=== PATIENT | female | born 2000 | race Caucasian/White ===

== ENCOUNTER 2022-10-12 12:38 | Emergency (ER) | payer OTHER, SELFPAY ==
[2022-10-12 12:52] VITALS: BP 129/63; PULSE 95; RESP 16; TEMP 36.6; O2SAT 100
--- NOTE | 2022-10-12 15:50 | ECG_ITS ---
Measurements Intervals [place] Rate: 83 P: 39 NM: 119 QRS: 38 QRSD: 88 T: 17 QT: 347 QTc: 410 Interpretive Statements SINUS RHYTHM WITH SINUS ARRHYTHMIA WITH SHORT NM INTERVAL NONSPECIFIC ST & T-WAVE ABNORMALITY- ANTEROLAT/INF LEADS BASELINE ARTIFACT- I, II, III, V6 BORDERLINE ECG NO PREVIOUS ECG AVAILABLE FOR COMPARISON Electronically Signed On 10-12-2022 16:43:47 MOUTHPIECE MAKER by Zafar Borges D.O.
--- NOTE | 2022-10-12 18:57 | PC.NURSE ---
Patient states that she is leaving and wished this RN to cut off her armband. Patient ambulated out of department without assistance.
== END 2022-10-12 19:12 | disposition left against medical advice (07) ==
PROVIDERS: Emergency Provider Emergency Medicine; PCP Physician Assistant
DX: R07.9 Chest pain, unspecified (principal)
CPT/HCPCS: 93005; 99199

== ENCOUNTER 2022-11-20 07:37 | Emergency (ER) | payer OTHER, SELFPAY ==
--- NOTE | ~2022-11-20 | CT_ITS ---
EXAMINATION: CT abdomen pelvis w con DATE: 11/20/2022 08:23 INDICATION: Generalized abdominal pain and bloating. TECHNIQUE: Computed tomography (CT) of the abdomen and pelvis was performed with 100 mL Omnipaque 350 intravenous contrast. Automated exposure control and iterative reconstruction technique were employe d. The dose-length product was 337.43 mGy-cm. COMPARISON: None. FINDINGS: The visualized portions of the lung bases are clear without pneumonia or pleural effusion. The heart size is normal. No pericardial effusion. The liver, gallbladder, spleen, pancreas, adrenal glands, and kidneys are normal. There are no dilated loops of bowel. The appendix is normal. There ar e no pathologically enlarged lymph nodes. There is no free intraperitoneal fluid. There is mild lumba r spondylosis. IMPRESSION: 1. No etiology for the patient's symptoms. Reviewed, dictated and finalized at location A.
[2022-11-20 07:40] VITALS: BP 121/81; PULSE 67; RESP 18; TEMP 36.8; O2SAT 99
--- NOTE | 2022-11-20 07:42 | ED.NAVMDI ---
HPI - Nausea/Vomiting/Diarrhea General Chief complaint: Nausea/Vomiting/Diarrhea Stated complaint: abd pain Time Seen by Provider: 11/20/22 07:42 Source: patient Mode of arrival: ambulatory Limitations: no limitations History of Present Illness HPI Narrative: 22 years old white female presented to the ED with abdominal bloating and discomfort started over 3 weeks ago been seen by at least 3 physician since, started on omeprazole 20 mg once a day for possible esophagitis/gastritis without any improvement. The abdominal bloating associated with nausea and dry heaves. She denies any fever or chills. She denies aggravating factors, relieving factors when she goes sleep. A lot of stress lately, strong family history of depression and anxiety. Related Data Home Medications Medication Instructions Recorded Confirmed multivitamin (Daily Multi-Vitamin 1 tablet PO DAILY 10/20/22 11/17/22 tablet) omeprazole magnesium 20 mg 20 mg PO DAILY 11/17/22 11/17/22 capsule,delayed release ([employer] (omeprazole)) Allergies Allergy/AdvReac Type Severity Reaction Status Date / Time No Known Allergies Allergy Verified 11/20/22 07:44 Review of Systems Review of Systems: All systems reviewed & are unremarkable except as noted in HPI and below PMFSH Past Medical History Medical History Anxiety Herniated disc Migraines Family History Family History Mother Depression Migraines Father Seizures Grandparent Hypertension Depression Migraines Breast cancer Hyperlipemia AD (Alzheimer's disease) Arthritis Social History Social History Smoking status: Never smoker Second hand tobacco smoke exposure: No Alcohol intake: current Substance use: unknown Lack of Transportation: No Lack of Food: Never True Current Housing: I Have Housing Concerned About Future Housing: No Difficulty Paying Gas/Electric Bills: No Difficulty Paying for Meds: No Currently Unemployed: No Education: High School Diploma/GED Difficulty w/ Childcare or Family Care: No Exam Narrative: General appearance: Well-developed, well-nourished Skin: Normal color Head: Normocephalic, nontraumatic Eyes: Clear conjunctiva ENT: Oropharynx normal, ears normal, nose normal Neck: Supple, nontender Chest and respiratory: Airway patent, no respiratory distress, no accessory muscle use Heart: Regular rate/rhythm Abdomen: Soft, nontender, no organomegaly, quiet bowel sounds Vascular: Normal peripheral pulses, normal capillary refill. Musculoskeletal: Normal range of motion, nontender back Neurologic: Alert and oriented ?3, JUMPBASTING ARMHOLE BASTER is normal as tested, no gross motor deficit Course Reevaluation(s) Reevaluation #1: Feeling much better, no more nausea and ready to go home. Date: 11/20/22 Time: 09:53 Vital Signs Vital signs: Vital Signs Temperature 36.8 C 11/20/22 07:40 Pulse Rate 67 11/20/22 07:40 Respiratory Rate 18 11/20/22 07:40 Blood Pressure 121/81 11/20/22 07:40 Pulse Oximetry 99 11/20/22 07:40 Oxygen Delivery Room Air 11/20/22 07:40 Temperature 36.8 C 11/20/22 07:40 Pulse Rate 70 11/20/22 09:17 Respiratory Rate 17 11/20/22 09:17 Blood Pressure 123/65 11/20/22 09:17 Pulse Oximetry 99 11/20/22 09:17 Oxygen Delivery Room Air 11/20/22 07:40 MDM - Nausea/Vomiting/Diarrhea MDM Narrative Medical decision making narrative: Patient presents with abdominal bloating and nausea, physical examination is unremarkable except for stress and depression
[2022-11-20] MEDS: SODIUM CHLORIDE 0.9% IV 2,000 ML 999 ML IV CONT (07:53)
[2022-11-20] MEDS: ONDANSETRON INJ 4 MG/2 ML VIAL IV PUSH (07:53)
[2022-11-20 07:54] LABS: Basophils Absolute Auto 0.1 K/mm3 (0.0-0.1); Basophils Percent Auto 0.9 % (0.2-1.2); Eosinophils Absolute Auto 0.2 K/mm3 (0-0.3); Eosinophils Percent Auto 2.8 % (0-4.4); Hematocrit 41.1 % (37.0-47.0); Hemoglobin 12.6 g/dL (12.0-15.0); Immature Granulocyte Absolute 0.01 K/mm3 (0.00-0.031); Immature Granulocyte Percent A 0.2 % (0-0.5); Lymphocytes Absolute Auto 2.16 K/mm3 (0.9-3.2); Lymphocytes Percent Auto 37.6 % (18.3-44.2); Mean Corpuscular HGB Conc 30.7 g/dl (32-36); Mean Corpuscular Volume 81.7 fl (80-100); Mean Platelet Volume 10.4 fl (7.4-10.4); Monocytes Absolute Auto 0.5 K/mm3 (0.1-0.6); Monocytes Percent Auto 8.2 % (2.6-8.5); Neutrophils Absolute Auto 2.9 K/mm3 (1.3-6.7); Neutrophils Percent Auto 50.3 % (45.5-73.1); Platelet Count Result 438 k/mm3 (150-375); Red Blood Count 5.03 M/mm3 (4.2-5.4); Red Cell Distribution Width 15.7 % (11.5-14.5); White Blood Count 5.8 K/mm3 (4.5-10.0)
[2022-11-20 08:06] LABS: Appearance Urine Cloudy (Clear); Bilirubin Urine Negative (Negative); Blood Urine Negative (Negative); Color Urine Yellow (Yellow); Glucose Urine UA Negative (Negative); Ketones Urine Negative (Negative); Leukocyte Esterase Ur Negative LEU/UL (Negative); Nitrate Urine Negative (Negative); Protein Urine Negative (Negative)
[2022-11-20 08:06] LABS: Alanine Aminotransferase 29 U/L (6-35); Alkaline Phosphatase 45 U/L (38-126); Anion Gap 11 mmol/L (8-16); Aspartate Amino Transferase 30 U/L (14-36); Bilirubin,Total 0.6 mg/dL (0.2-1.3); Blood Urea Nitrogen 10 mg/dL (7-17); Calcium 9.4 mg/dL (8.4-10.2); Carbon Dioxide 24 mmol/L (22-30); Chloride 104 mmol/L (98-107); Estimated CRCL calculation 124 ml/min; Estimated Glomerular Filt Rate > 60; Glucose 91 mg/dL (65-110); Lipase 117 U/L (23-300); Potassium 4.2 mmol/L (3.4-5.0); Sodium 139 mmol/L (137-145)
[2022-11-20] MEDS: METOCLOPRAMIDE HCL INJ 10 MG/2 ML VIAL IV PUSH (08:11)
[2022-11-20 08:13] LABS: Add Urine Microscopic? YES
[2022-11-20 08:25] LABS: Squamous Epithelial Cell Urine Many /hpf (Few)
[2022-11-20 08:26] LABS: Bacteria Urine Noted /hpf; Mucus Urine Moderate /lpf
[2022-11-20 09:17] VITALS: BP 123/65; PULSE 70; RESP 17; O2SAT 99
== END 2022-11-20 10:03 | disposition home or self-care (01) ==
PROVIDERS: Emergency Provider Emergency Medicine; PCP Physician Assistant
DX: R10.9 Unspecified abdominal pain (principal); R11.0 Nausea; F41.9 Anxiety disorder, unspecified
CPT/HCPCS: 36415; 74177; 80053; 81001; 81025; 83690; 85025; 96361; 96374; 96375; 99284; J2405; J2765; J7030; Q9967

== ENCOUNTER 2023-06-18 10:17 | Outpatient (CLI) | payer OTHER, SELFPAY ==
[2023-06-18 11:18] LABS: Basophils Absolute Auto 0.1 K/mm3 (0.0-0.1); Basophils Percent Auto 0.7 % (0.2-1.2); Eosinophils Absolute Auto 0.2 K/mm3 (0-0.3); Eosinophils Percent Auto 2.2 % (0-4.4); Hemoglobin 13.2 g/dL (12.0-15.0); Immature Granulocyte Absolute 0.02 K/mm3 (0.00-0.031); Immature Granulocyte Percent A 0.3 % (0-0.5); Lymphocytes Absolute Auto 2.13 K/mm3 (0.9-3.2); Lymphocytes Percent Auto 29.8 % (18.3-44.2); Mean Corpuscular HGB Conc 31.4 g/dl (32-36); Mean Corpuscular Hemoglobin 27.3 pg (26-34); Mean Corpuscular Volume 86.8 fl (80-100); Mean Platelet Volume 9.4 fl (7.4-10.4); Monocytes Absolute Auto 0.5 K/mm3 (0.1-0.6); Monocytes Percent Auto 6.4 % (2.6-8.5); Neutrophils Absolute Auto 4.3 K/mm3 (1.3-6.7); Neutrophils Percent Auto 60.6 % (45.5-73.1); Platelet Count Result 456 k/mm3 (150-375); Red Blood Count 4.84 M/mm3 (4.2-5.4); Red Cell Distribution Width 13.6 % (11.5-14.5); White Blood Count 7.2 K/mm3 (4.5-10.0)
== END 2023-06-18 10:18 | disposition home or self-care (01) ==
PROVIDERS: PCP Physician Assistant; Visit Provider Physician Assistant
DX: D75.839 Thrombocytosis, unspecified (principal)
CPT/HCPCS: 36415; 85025

== ENCOUNTER 2023-07-13 12:34 | Outpatient (CLI) | payer OTHER, SELFPAY ==
[2023-07-13 12:59] LABS: Appearance Urine Cloudy (Clear); Bacteria Urine 4+ /hpf; Bilirubin Urine Negative (Negative); Blood Urine 1+ (Negative); Color Urine Yellow (Yellow); Glucose Urine UA Negative (Negative); Ketones Urine Negative (Negative); Leukocyte Esterase Ur Negative LEU/UL (NEGATIVE); Nitrate Urine Negative (Negative); Non Pathogenic Casts 0-2; Protein Urine Negative (Negative); Specific Grav Ur 1.021 (1.001-1.035); Squamous Epithelial Cell Urine Many /hpf (Few)
[2023-07-13 13:08] LABS: Add Urine Microscopic? YES
== END 2023-07-13 12:35 | disposition home or self-care (01) ==
LOC: ANHLAB 12:36
PROVIDERS: PCP Physician Assistant; Visit Provider Physician Assistant
DX: R35.0 Frequency of micturition (principal)
CPT/HCPCS: 81001; 87086

== ENCOUNTER 2023-09-01 15:57 | Outpatient (CLI) | payer OTHER, SELFPAY ==
[2023-09-01 17:26] LABS: Free T4 Free Thyroxine 0.77 ng/mL (0.78-2.19); Vitamin D 25 Hydroxy 63.7 ng/mL
[2023-09-03 15:34] LABS: Triiodothryronine T3 Uptake 30 % (22-35)
[2023-09-04 03:45] LABS: Thyroid Peroxidase Antibodies <1 IU/mL (<9)
== END 2023-09-01 15:58 | disposition home or self-care (01) ==
LOC: ANHLAB 15:59
PROVIDERS: PCP Physician Assistant; Visit Provider Obstetrics & Gynecology
DX: R89.9 Unspecified abnormal finding in specimens from other organs, systems and tissues (principal); E55.9 Vitamin D deficiency, unspecified
CPT/HCPCS: 36415; 82306; 84439; 84443; 84479; 86376

== ENCOUNTER 2023-12-03 08:32 | Outpatient (CLI) | payer OTHER, SELFPAY ==
--- NOTE | ~2023-12-03 | XR_ITS ---
EXAMINATION: XR chest 2V 12/03/2023 08:27 INDICATION: Cough PROCEDURE: 2 view chest COMPARISON: Comparison to multiple prior studies sequentially, with oldest reviewed study dated 04/22. FINDINGS: The lungs are clear. The cardiomediastinal silhouette is within normal limits. There are no pleural effusions. There is no pneumothorax suspected. IMPRESSION: 1: NO ACUTE CARDIOPULMONARY DISEASE. Reviewed, dictated and finalized at location B.
[2023-12-03 09:24] LABS: Influenza A QL RT-PCR Negative (Negative); Influenza B QL RT-PCR Negative (Negative); RSV RNA, RT-PCR Negative (Negative); SARS-CoV-2 RNA PCR Negative (Negative)
== END 2023-12-03 08:33 | disposition home or self-care (01) ==
PROVIDERS: PCP Physician Assistant; Visit Provider Physician Assistant
DX: R05.9 Cough, unspecified (principal); Z20.822 Contact with and (suspected) exposure to COVID-19
CPT/HCPCS: 71046; 87637

== ENCOUNTER 2023-12-17 11:27 | Outpatient (CLI) | payer OTHER, SELFPAY ==
[2023-12-17 11:52] LABS: Appearance Urine Clear (Clear); Bilirubin Urine Negative (Negative); Blood Urine Negative (Negative); Color Urine Yellow (Yellow); Glucose Urine UA Negative (Negative); Ketones Urine Negative (Negative); Leukocyte Esterase Ur Negative LEU/UL (Negative); Nitrate Urine Negative (Negative); Protein Urine Negative (Negative); Specific Grav Ur 1.018 (1.001-1.035); Urobilinogen Urine 0.2 mg/dL (<2.0)
[2023-12-17 12:00] LABS: Alanine Aminotransferase 22 U/L (6-35); Albumin Level 4.6 g/dL (3.5-5.1); Alkaline Phosphatase 51 U/L (38-126); Anion Gap 4 mmol/L (4-12); Aspartate Amino Transferase 27 U/L (14-36); Bilirubin,Total 0.7 mg/dL (0.2-1.3); Blood Urea Nitrogen 10 mg/dL (7-17); Calcium 9.3 mg/dL (8.4-10.2); Carbon Dioxide 29 mmol/L (22-30); Chloride 102 mmol/L (98-107); Estimated Glomerular Filt Rate > 60; Glucose 90 mg/dL (65-110); Potassium 4.1 mmol/L (3.4-5.0); Sodium 135 mmol/L (137-145)
[2023-12-17 12:04] LABS: Add Urine Microscopic? NO
[2023-12-17 12:16] LABS: Hemoglobin A1C 5.2 % (<5.7)
[2023-12-17 12:43] LABS: Erythrocyte Sedimentation Rate 12 mm/hr (0-20)
== END 2023-12-17 11:28 | disposition home or self-care (01) ==
PROVIDERS: PCP Physician Assistant; Visit Provider Physician Assistant
DX: Z00.00 Encounter for general adult medical examination without abnormal findings (principal); R10.9 Unspecified abdominal pain; M79.10 Myalgia, unspecified site; Z13.1 Encounter for screening for diabetes mellitus
CPT/HCPCS: 36415; 80053; 81003; 83036; 85652; 86038; 87086

== ENCOUNTER 2024-07-05 11:41 | Outpatient (CLI) | payer OTHER, SELFPAY ==
--- NOTE | ~2024-07-05 | XR_ITS ---
EXAMINATION: XR chest 2V 07/05/2024 11:56 INDICATION: Acute upper respiratory infection PROCEDURE: 2 view chest COMPARISON: 12/03/2023 FINDINGS: The lungs are clear. The cardiomediastinal silhouette is within normal limits. There are no pleural effusions. There is no pneumothorax suspected. IMPRESSION: 1: NO ACUTE CARDIOPULMONARY DISEASE. Reviewed, dictated and finalized at location B. ECTION SPECIALIST
== END 2024-07-05 11:42 | disposition home or self-care (01) ==
PROVIDERS: PCP Internal Medicine; Visit Provider Internal Medicine
DX: J06.9 Acute upper respiratory infection, unspecified (principal)
CPT/HCPCS: 71046

== ENCOUNTER 2024-09-04 16:37 | Outpatient (CLI) | payer OTHER, SELFPAY ==
--- NOTE | ~2024-09-04 | XR_ITS ---
CHEST RADIOGRAPH, PA AND LATERAL CLINICAL HISTORY: J11.1 - Influenza due to unidentified influenza virus wit... . COMPARISON: 08/26/2024 TECHNIQUE: PA and lateral views of the chest. FINDINGS The cardiomediastinal silhouette is unremarkable. The lungs are clear. Visualized osseous structures and soft tissues are unremarkable. IMPRESSION: No focal infiltrate or effusion. Reviewed, dictated and finalized at location A. TY INTERN
--- OUTSIDE RECORDS SUMMARY | 2024-09-04 16:51 | XMS_ITS | Encounter Summary ---
Author Organization [facility] Address [address] [place] [address]. [place], [place] [id number] [place] [address] Care Team Providers Care Fish Bin Tender Name Role Phone Andre Friend PA-C Primary Care Provider [phone] Kirill Bah DO Unavailable [phone] Encounter Details Date Type Department Care Team (Late st Contact Info) Description 05/02/2024 [employer] Message Enc [facility] Family & Internal Medicine [facility] [address] [place] [address] [place] [address] [place] [address] Lab results Social History Tobacco Use Types Packs/Day Years Used Date Smoking Tobacco: Never Smokeless Tobacco: Never Alcohol Use Standard Drinks/Week Comments Never 0 (1 standard drink = 0.6 oz pur e alcohol) AUDIT-C Answer Date Recorded Frequency of Alcohol Consumption Never 03/11/2020 Average Number of Drinks Not on file 020 Frequency of Binge Drinking Not on file 10/2019 Comments No Sex and Gender Information Value Date Recorded Sex Assigned at Female 08/28/2024 7:03 AM PROFESSOR OF SPORT MANAGEMENT Legal Sex Female 7:56 PM CDT Gender Identity Not on file Sexual Orientation Not on file documented as of this encounter Plan of Treatment Not on file documented as of this encounter Visit Diagnoses Not on filedocumented in this encounter Additional Health Concerns Infection Onset Date Last Indicated Resolved Time COVID-19 Rule Out 05/04/2024 05/04/2024 05/04/2024 6:11 PM CDT COVID-19 Rule Out 07/03/2024 07/03/2024 07/03/2024 10:27 AM PROFESSOR OF SPORT MANAGEMENT COVID-19 Rule Out 08/25/2024 08/25/2024 08/25/2024 8:59 AM PROFESSOR OF SPORT MANAGEMENT COVID-19 Rule Out 08/28/2024 08/28/2024 08/28/2024 7:34 AM PROFESSOR OF SPORT MANAGEMENT Influenza - Seasonal 08/28/2024 08/28/2024 documented as of this encounter Care Teams Fish Bin Tender Relationship Specialty Start Date End Date Andre Friend PA-C [address] [place] [address] PCP - General PHYSICIAN RN DOCUMENT IMPROVEMENT SPECIALIST 08/10/21 Kirill Bah DO [address] [facility] [address] [place] [address] INTERNAL MEDICINE 05/04/24 documented as of this encounter
--- OUTSIDE RECORDS SUMMARY | 2024-09-04 16:51 | XMS_ITS | Clinical Summary ---
Author Organization [facility] Address [address] [place] [address] Care Team Providers Care Knife Setter Grinder Machine Name Role Phone Andre Friend Primary Care Provider Allergies No known active allergies Medications spironolactone (ALDACTONE) 100 mg tablet Take 100 mg by mouth daily with breakfast 1 Active drospirenone-et hinyl estradioL (LUISA,GIANVI) 3-0.02 mg per tablet Take 1 tablet by mouth daily 1 Active escitalopram (LEXAPRO) 20 mg tablet Take 20 mg by mouth daily Active sertraline (ZOLOFT) 100 mg tablet Take 150 mg by mouth daily Active Active Problems Problem Noted Date Diagnosed Date SI (sacroiliac) joint dysfunction 09/12/2020 Mechanical low back pain 09/12/2020 Chronic low back pain 09/12/2020 Bilateral low back pain without sciatica 019 Acute bilateral low back pain with right-sided s ciatica 01/11/2019 Bulge of lumbar disc without myelopathy 10/05/19 19 Acute midline low back pain without sciatica Surgical History Surgery Date Site/Laterality Comments IR INJECTION ARTHROGRAM SI J OINT LEFT INCLUDES IMAGING GUIDANCE 01/16/2021 Left Social History Tobacco Use Types Packs/Day Years Used Date Smoking Tobacco: Never Smokeless Tobacco: Never Comments No Sex and Gender Information Value Date Recorded Sex Assigned at Not on file Legal Sex Female 12:34 PM SLIDE FASTENER CHAIN ASSEMBLER Gender Identity Not on file Sexual Orientation Straight 10/25/2020 8: 21 AM CDT Obstetrics History Last Filed Vital Signs Vital Sign Reading Time Taken Comments Blood Pressure 119/77 08/14/2022 5:52 AM SLIDE FASTENER CHAIN ASSEMBLER Pulse 88 08/14/2022 5:52 AM SLIDE FASTENER CHAIN ASSEMBLER Temperature 36.7 ??C (98.1 ??F) 08/14/2022 1:16 AM CS T Respiratory Rate 18 08/14/2022 5:52 AM SLIDE FASTENER CHAIN ASSEMBLER Oxygen Saturation 99% 08/14/2022 5:52 AM SLIDE FASTENER CHAIN ASSEMBLER Inhaled Oxygen Concentration - - Weight 68 kg (150 lb) 08/13/2022 10:11 PM SLIDE FASTENER CHAIN ASSEMBLER Height 160 cm (5' 3 ) 08/13/2022 10:11 PM SLIDE FASTENER CHAIN ASSEMBLER Body Mass Index 26.57 08/13/2022 10:11 PM SLIDE FASTENER CHAIN ASSEMBLER Plan of Treatment Health Maintenance Due Date Last Done Comments Cervical Cancer Screening 2002 Depression Screening 2002 Hepatitis C Screening 2002 Meningococcal B Vaccine (1 o f 2 - Patient Seeks Protection) 2018 Regular Well Visit/Exam 18-64 01/21/2020 HPV Vaccines (2 - 3-dose series) 01/02/2021 12/06/19 21 DTaP/Tdap/Td Vaccine (7 - Td or Tdap) 02/24/2023 02/24/2013, 02/15/2007, 08/28/2003, Additional history exists Influenza Vaccine (#1) 2024 2, 06/20/2004, 05/16/2004 Pneumococcal vaccine <65 Completed 003, 2002, 2002, Additional history exists Varicella Vaccines Completed 02/15/2007, 08/28/2003 Insurance [facility] [place] [place] [address] [facility] Care Teams Knife Setter Grinder Machine Relationship Specialty Start Date End Date Andre Friend PA [address] [address] [facility] - General 07/28/21
--- OUTSIDE RECORDS SUMMARY | 2024-09-04 16:51 | XMS_ITS | Encounter Summary ---
Author Organization [facility] Address [address] [place] [address]. [place], [place] [address] [place] [address] Care Team Providers Care Tourist Escort Name Role Phone Andre Friend PA-C Primary Care Provider [phone] Kirill Bah DO Unavailable Encounter Details Date Type Department Care Team (Latest Contact Info) Description 08/25/2024 Scan HEALTH INFO SRVCS Scanned, Doc Med Group Social History Tobacco Use Types Packs/Day Years Used Date Smoking Tobacco: Never Smokeless Tobacco: Never Alcohol Use Standard Drinks/Week Comments Never 0 (1 standard drink = 0.6 oz pur e alcohol) AUDIT-C Answer Date Recorded Frequency of Alcohol Consumption Never 03/11/2020 Average Number of Drinks Not on file 020 Frequency of Binge Drinking Not on file 10/2019 PHQ-2 Answer Date Recorded Patient Health Questionnaire-2 Score 0 08/25/2024 Comments No Sex and Gender Information Value Date Recorded Sex Assigned at Female 08/28/2024 7:03 AM ASSEMBLER SANDAL PARTS Legal Sex Female 7:56 PM CDT Gender Identity Not on file Sexual Orientation Not on file documented as of this encounter Plan of Treatment Not on file documented as of this encounter Visit Diagnoses Not on filedocumented in this encounter Additional Health Concerns Infection Onset Date Last Indicated Resolved Time COVID-19 Rule Out 08/25/2024 08/25/2024 08/25/2024 8:59 AM ASSEMBLER SANDAL PARTS COVID-19 Rule Out 08/28/2024 08/28/2024 08/28/2024 7:34 AM ASSEMBLER SANDAL PARTS Influenza - Seasonal 08/28/2024 08/28/2024 Assessment Noted Time PHQ-9 Depression Total Score: 2 08/25/19 8:53 AM ASSEMBLER SANDAL PARTS documented as of this encounter Care Teams Tourist Escort Relationship Specialty Start Date End Date Andre Friend PA-C [address] [place], [place] [id number] PCP - General PHYSICIAN BOTTLE AND GLASS INSPECTOR 08/10/21 Kirill Bah DO [address] [facility] [address] [place] [address] INTERNAL MEDICINE 05/04/24 documented as of this encounter
--- OUTSIDE RECORDS SUMMARY | 2024-09-04 16:51 | XMS_ITS | Clinical Summary ---
Author Organization [facility] Address [address] [place] [address]. [place], [place] [id number] [place] [id number] Care Team Providers Care Architectural Inspector Name Role Phone Andre Friend PA-C Primary Care Provider [phone] Kirill Bah DO Unavailable Allergies No known active allergies Medications sertraline (ZOLOFT) 50 MG tablet Take 2 tablets (100 mg total) by mouth daily. Active LORazepam (ATIVAN) 0.5 MG tablet Take 1 tablet (0.5 mg total) by mouth every 6 (six) hours as needed for Anxiety. Active busPIRone (BUSPAR) 15 MG tablet Take 1 tablet (15 mg total) by mouth daily. Active methocarbamol (ROBAXIN) 750 MG TabIndications:Upp er back pain Take 1 tablet (750 mg total) by mouth 3 (three) times daily for 30 days. 90 tablet 5 025 Active dicyclomine (BENTYL) 20 MG tablet Take 1 tablet (20 mg total) by mouth every 6 (six) hours. 20 tablet 4 025 Discontinu ed(Therapy completed) ondansetron (ZOFRAN-ODT) 4 MG disintegrating tablet Take 1 tablet (4 mg total) by mouth every 8 (eight) hours as needed for Nausea. 20 tablet 4 025 Discontinu ed(Therapy completed) oseltamivir (TAMIFLU) 75 MG capsule Take 1 capsule (75 mg total) by mouth 2 (two) times daily for 5 days. 10 capsule 025 Active Problems No known active problems Encounters Date Type Department Care Team Description 08/28/2024 6:59 AM DIESEL MACHINIST - 08/28/2024 8:18 AM [facility] Emergency [facility] Emergency Room [address] [place] [address] Lito Rodas MD Flu Like Symptoms Discharge Disposition: Home or Self Care (Routine Discharge) 08/28/2024 Travel 08/25/2024 8:40 AM [facility] Office Visit [facility] [address] [phone] Jl Doherty PA URI (Pt c/o dry cough, with chest tightness that radiates into back, sinus drainage and sore throat X 4 days) 08/25/2024 Scan [employer] INFO SRVCS Scanned, [facility] 08/25/2024 Travel 07/03/2024 8:48 AM [facility] - 07/03/2024 11:24 AM [facility] Emergency [facility] Emergency Room [address] [place] [address] Rosana Cano MD Chest Pain Discharge Disposition: Home or Self Care (Routine Discharge) 07/03/2024 Travel 06/29/2024 9:00 AM [facility] - 06/29/2024 11:42 AM [facility] Emergency [facility] Emergency Room [address] [place] [address] Rosana Cano MD Abdominal Pain Discharge Disposition: Home or Self Care (Routine Discharge) 06/29/2024 Travel from Last 3 Months Immunizations Name Administration Dates Next Due Dtap 02/15/2007, 4,2002,05/09,2002 Flumist (Intranasal) 06/06/2012,06/06/2012 HPV GARDASIL 9-VALENT 12/05/2020 Hepatitis A (Generic) 02/24/2013,02/21/2009 Hepatitis A (Havrix [address]) 02/24/2013, 009 Hepatitis B(Engerix B Adult) 05/03/2023 Hib-Hepatitis B (Comvax) 01/23/2003,2002,0 2002 Influenza Adult (Generic) 06/04/2023,,06/20/2004,03/2004 MENINGOCOCCAL A C Y&W-135 oligosaccharide (MENVEO) 02/24/2013 MMR 02/15/2007,01/23/2003 Meningococcal (Menactra) 04/25/2019 Pneumococcal (Prevnar 7) 01/23/2003,07/09,2002,03/10,2002 Polio IPV (Ipol) 02/15/2007, 2,2002,03/10 Tdap (Adacel) 02/24/2013 Varicella (Generic) 02/15/2007,08/28/2003 Social History Tobacco Use Types Packs/Day Years Used Date Smoking Tobacco: Never Smokeless Tobacco: Never Tobacco Cessation:Counseling Given: No Alcohol Use Standard Drinks/Week Comments Never 0 [...] Sex Assigned at Female 08/28/2024 7:03 AM DIESEL MACHINIST Legal Sex Female 7:56 PM CDT Gender Identity Not on file Sexual Orientation Not on file Last Filed Vital Signs Vital Sign Reading Time Taken Comments Blood Pressure 108/61 08/28/2024 8:14 AM DIESEL MACHINIST Pulse 88 08/28/2024 8:14 AM DIESEL MACHINIST Temperature 37.6 ??C (99.7 ??F) 08/28/2024 8:14 AM CS T Respiratory Rate 18 08/28/2024 8:14 AM DIESEL MACHINIST Oxygen Saturation 98% 08/28/2024 8:14 AM DIESEL MACHINIST Inhaled Oxygen Concentration - - Weight 81.6 kg (179 lb 14.3 oz) 08/28/2024 7:00 AM DIESEL MACHINIST Height 160 cm (5' 3 ) 08/28/2024 7:00 AM DIESEL MACHINIST Body Mass Index 31.87 08/28/2024 7:00 AM DIESEL MACHINIST Plan of Treatment Health Maintenance Due Date Last Done Comments Cervical Cancer Screening Pap Smear (Age 21 to 29) Every 3 Years 2002 Cervical Cancer Screening 2002 Annual Physical 2005 Meningococcal B Vaccine (1 of 2 - Standard) 2018 Hepatitis C 01/21/2020 HPV Vaccines (2 - 3-dose series) 01/02/2021 12/05/2020 DTaP, Tdap and Td Vaccines (7 - Td or Tdap) 02/24/2023 02/24/2013, 02/15/2007, 08/28/2003, Additional history exists COVID-19 Vaccine ( season) 2024 Influenza Adult (#1) 2024 06/04/2023, 04/25/2019, 06/06/2012, Additional history exists PHQ-2 (Physician [place]) 08/25/2025 08/25/2024 Pneumococcal Vaccine: Pediatrics (0 to 5 Years) and At-Risk Patients (6 to 64 Years) Aged Out 01/23/2003, 2002, 2002, Additional history exists No longer eligible based on patient's age to complete this topic Meningococcal Vaccine Completed 04/25/2019, 013 Hepatitis B Vaccines Completed 05/03/2023, 01/23/2003, 2002, Additional history exists PHQ-2 (Physician [place]) Completed 08/25/2024 RSV Immunizations Under 20 Months Aged Out No longer eligible based on patient's age to complete this topic Procedures Procedure Name Priority Date/Time Associated Diagnosis Comments XR CHEST PA+LAT STAT 08/28/2024 7:29 AM DIESEL MACHINIST COMPREHENSIVE METABOLIC PANEL STAT 08/28/2024 7:23 AM DIESEL MACHINIST CBC W/DIFF AUTOMATED STAT 08/28/2024 7:23 AM DIESEL MACHINIST HETEROPHILE ANTIBODIES,SCREEN STAT 08/28/2024 7:23 AM DIESEL MACHINIST CORONAVIRUS (COVID 19) STAT 7:12 AM DIESEL MACHINIST STREP A RAPID STAT 08/28/2024 7:08 AM DIESEL MACHINIST RESP SYNCYTIAL VIRUS STAT 08/28/2024 7:08 AM DIESEL MACHINIST INFLUENZA A & B STAT 08/28/2024 7:08 AM DIESEL MACHINIST CORONAVIRUS (COVID-19) INFLUENZA A & B ANTIGEN IA PANEL Routine 08/25/2024 Suspected COVID-19 virus infection XR CHEST PORTABLE STAT 07/03/2024 10: 53 AM DIESEL MACHINIST CORONAVIRUS (COVID 19) STAT 10:06 AM DIESEL MACHINIST CK (CPK) STAT 07/03/2024 10:06 AM DIESEL MACHINIST TROPONIN, QUANT STAT 07/03/2024 10:06 AM DIESEL MACHINIST COMPREHENSIVE METABOLIC PANEL STAT 07/03/2024 10:06 AM DIESEL MACHINIST D-DIMER, QUANTITATIVE STAT 07/03/2024 10:06 AM DIESEL MACHINIST PARTIAL THROMBOPLASTIN TIME,PTT STAT 07/03/2024 10:06 AM DIESEL MACHINIST PROTHROMBIN TIME, VENOUS STAT 07/03/2024 10:06 AM DIESEL MACHINIST CBC W/DIFF AUTOMATED STAT 07/03/2024 10:06 AM DIESEL MACHINIST ECG 12-LEAD STAT 07/03/2024 9:00 AM DIESEL MACHINIST URINALYSIS, AUTO, COMPLETE STAT 06/29/2024 10:35 AM DIESEL MACHINIST AMYLASE STAT 06/29/2024 9:35 AM DIESEL MACHINIST LIPASE STAT 06/29/2024 9:35 AM DIESEL MACHINIST COMPREHENSIVE METABOLIC PANEL STAT 06/29/2024 9:35 AM DIESEL MACHINIST CBC W/DIFF AUTOMATED STAT 06/29/2024 9:35 AM DIESEL MACHINIST from Last 3 Months Results * XR CHEST PA+LAT (08/28/2024 7:29 AM DIESEL MACHINIST) Anatomical Region Laterality Modality Chest Radiographic Jennyfer ging 08/28/2024 7:38 AM DIESEL MACHINIST Impressions 08/28/2024 7:39 AM DIESEL MACHINIST IMPRESSION: No radiographic evidence of active chest disease. Referred By: ?? Interpreted By: Carmine Graves MD, 08/28/2024 7:38 AM Narrative 08/28/2024 7:39 AM DIESEL MACHINIST [facility] [id number] [place] [address]. [place] [address] Examination: XR CHEST PA+LAT Exam time: 08/28/2024 7:21 AM Indication: Cough. Comparison: 07/03/2024 Technique: PA and lateral views of the chest, 2 images. Findings: Mediastinal silhouette and pulmonary vasculature are within normal limits. No pneumothorax, pleural effusion, or consolidation. No acute osseous abnormality. Procedure Note Carmine Graves MD - 08/28/2024 [facility] [address] [place] [address] Examination: XR CHEST PA+LAT Exam time: 08/28/2024 7:21 AM Indication: Cough. Comparison: 07/03/2024 Technique: PA and lateral views of the chest, 2 images. Findings: Mediastinal silhouette and pulmonary vasculature are withinnormal limits. No pneumothorax, pleural effusion, or consolidation. Noacute osseous abnormality. IMPRESSION: No radiographic evidence of active chest disease. Referred By: Interpreted By: Carmine Graves MD, 08/28/2024 7:38 AM Lito Rodas MD GENERAL IMAGING Final Result * (ABNORMAL) COMPREHENSIVE METABOLIC PANEL (08/28/2024 7:23 AM DIESEL MACHINIST) Only the most recent of3 resultswithin the time period is included. GLUCOSE 100(H) 70 - 99 MG/DL 08/28/2024 7:45 AM [facility] BUN 7 7 - 18 MG/DL 08/28/2024 7:45 AM [facility] CREATININE S/P/B 0.88 0.55 - 1.02 MG/DL 08/28/2024 7:45 AM [facility] SODIUM S/P/B 136 136 - 145 MMOL/L 08/28/2024 7:45 AM [facility] POTASSIUM S/P/B 3.5 3.5 - 5.1 MMOL/L 08/28/2024 7:45 AM [facility] CHLORIDE S/P/B 101 100 - 108 MMOL/L 08/28/2024 7:45 AM [facility] CO2 25.6 21 - 32 MMOL/L 08/28/2024 7:45 AM [facility] CALCIUM S/P/B 8.6 8.5 - 10.1 MG/DL 08/28/2024 7:45 AM [facility] BILIRUBIN TOTAL S/P/B 0.5 0.2 - 1.2 MG/DL 08/28/2024 7:45 AM [facility] TOTAL PROTEIN S/P/B 7.4 6.4 - 8.2 G/DL 08/28/2024 7:45 AM [facility] ALBUMIN S/P/B 3.7 3.4 - 5.0 G/DL 08/28/2024 7:45 AM [facility] AST 18 15 - 37 U/L 08/28/2024 7:45 AM [facility] ALT 33 14 - 55 U/L 08/28/2024 7:45 AM [facility] ALKALINE PHOSPHATASE S/P/B 55 50 - 136 U/L 08/28/2024 7:45 AM [facility] ANION GAP 9.4 5 - 15 MMOL/L 08/28/2024 7:45 AM [facility] BUN CREATININE RATIO 8.0 6 - 26 08/28/2024 7:45 AM [facility] A/G RATIO 1.0 1.0 - 2.0 RATIO 08/28/2024 7:45 AM [facility] GFR ESTIMATE >90 >90 ML/MIN/1.7 3 M2 08/28/2024 7:45 AM [facility] Comment: NOTE: eGFR is not calculated for patients <18 years of age. This is an estimated GFR calculation using the new CKD EPI creatinine equation without race and so does not require a correction factor for race. This estimated GFR should not be used for calculating drug doses. 08/28/2024 7:23 AM DIESEL MACHINIST Lito Rodas MD LABORATORY Final Result [facility] [address] [place] [address], * HETEROPHILE ANTIBODIES,SCREEN (08/28/2024 7:23 AM DIESEL MACHINIST) MONO TEST NEGATIVE NEGATIVE 08/28/2024 7:40 AM [facility] 08/28/2024 7:23 AM DIESEL MACHINIST Lito Rodas MD LABORATORY Final Result [facility] [address] [place] [address], * (ABNORMAL) CBC W/DIFF AUTOMATED (08/28/2024 7:23 AM DIESEL MACHINIST) Only the most recent of3 resultswithin the time period is included. WBC 7.58 4.4 - 11.0 x10'3/uL 08/28/2024 7:35 AM [facility] RBC 4.02(L) 4.50 - 5.10 x10'6/uL 08/28/2024 7:35 AM [facility] HGB 11.5(L) 12.3 - 15.3 G/DL 08/28/2024 7:35 AM [facility] HCT 35.2(L) 35.9 - 44.6 % 08/28/2024 7:35 AM [facility] MCV 87.6 80.0 - 96.0 FL 08/28/2024 7:35 AM [facility] MCH 28.6 25.3 - 30.9 PG 08/28/2024 7:35 AM [facility] MCHC 32.7 31.0 - 34.1 G/DL 08/28/2024 7:35 AM [facility] RDW 13.5 12.4 - 15.1 % 08/28/2024 7:35 AM [facility] PLT 259 151 - 353 x10'3/uL 08/28/2024 7:35 AM [facility] MPV 9.6 9.6 - 12.0 FL 08/28/2024 7:35 AM [facility] RBC MORPHOLOGY NORMAL 08/28/2024 7:35 AM [facility] PLT MORPH. NORMAL 08/28/2024 7:35 AM [facility] WBC MORPHOLOGY NORMAL 08/28/2024 7:35 AM [facility] LYMPHOCYTES % 8.7(L) 15.8 - 45.0 % 08/28/2024 7:35 AM [facility] NEUTROPHILS % 81.7(H) 42.1 - 71.9 % 08/28/2024 7:35 AM [facility] MONOCYTES % 9.0 5.7 - 12.5 % 08/28/2024 7:35 AM [facility] EOSINOPHILS 0.0 0.0 - 5.6 % 08/28/2024 7:35 AM [facility] BASOPHILS 0.3 0.0 - 1.3 % 08/28/2024 7:35 AM [facility] ABS. NEUTROPHILS 6.20(H) 1.40 - 6.00 x10'3/uL 08/28/2024 7:35 AM [facility] IMMATURE GRANS % 0.3 0.0 - 0.5 % 08/28/2024 7:35 AM [facility] ABS. LYMPHOCYTES 0.66(L) 0.80 - 4.70 x10'3/uL 08/28/2024 7:35 AM [facility] 08/28/2024 7:23 AM DIESEL MACHINIST us Lito Rodas MD LABORATORY Final Result [facility] [address] [place] [address], * CORONAVIRUS (COVID-19) MOLECULAR (08/28/2024 7:12 AM DIESEL MACHINIST) Only the most recent of2 resultswithin the time period is included. CORONAVIRUS SARS COV 2 RNA NEGATIVE NEGATIVE 08/28/2024 7:34 AM DIESEL MACHINIST [facility] Comment: NEGATIVE RESULTS DO NOT RULE OUT COVID 19 AND SHOULD NOT BE USED THE SOLE BASIS FOR TREATMENT OR PATIENT MANAGEMENT DECISIONS, INCLUDING INFECTION CONTROL DECISIONS. NEGATIVE RESULTS SHOULD BE CONSIDERED IN THE CONTEXT OF A PATIENT'S RECENT EXPOSURES, HISTORY AND THE PRESENCE OF CLINICAL SIGNS AND SYMPTOMS CONSISTENT WITH COVID 19. THE ID NOW COVID-19 2.0 TEST HAS BEEN AUTHORIZED BY THE FDA UNDER EAU FOR USE BY AUTHORIZED LABORATORIES. PERFORMED BY NUCLEIC ACID AMPLIFICATION FOR MOLECULAR QUALITATIVE DETECTION OF SARS-COV-2. SPECIMEN TYPE NASAL 08/28/2024 7:12 AM DIESEL MACHINIST [facility] NASOPHARYNGEAL SWAB / Unknown 08/28/2024 7:12 AM DIESEL MACHINIST us Lito Rodas MD MICROBIOLOGY - GENERAL ORDERABL ES Final Result Performing Organization Address City/[facility]/ZIP Co de Phone Number [facility] [address] [place] [address], [place] [phone] * (ABNORMAL) INFLUENZA A & B (08/28/2024 7:08 AM DIESEL MACHINIST) SPECIMEN TYPE NASOPHARYNGEAL SWAB 08/28/2024 7:17 AM DIESEL MACHINIST [facility] INFLUENZA A POSITIVE(A) NEGATIVE 08/28/2024 7:37 AM DIESEL MACHINIST [facility] INFLUENZA B NEGATIVE NEGATIVE 08/28/2024 7:37 AM DIESEL MACHINIST [facility] NASOPHARYNGEAL SWAB / Unknown 08/28/2024 7:08 AM DIESEL MACHINIST us Lito Rodas MD MICROBIOLOGY - GENERAL ORDERABL ES Final Result Performing Organization Address City/[facility]/ZIP Co de Phone Number [facility] [address] [place] [address], [place] [phone] * STREP A RAPID (08/28/2024 7:08 AM DIESEL MACHINIST) RAPID STREP TEST NEGATIVE NEGATIVE 08/28/2024 7:27 AM DIESEL MACHINIST [facility] STRUCTURE OF ANTERIOR PORTION OF NECK / Unknown 08/28/2024 7:08 AM DIESEL MACHINIST Lito Rodas MD MICROBIOLOGY - GENERAL ORDERABL ES Final Result Performing Organization Address City/[facility]/ZIP Co de Phone Number [facility] [address] [place] [address], [place] [phone] * RESP SYNCYTIAL VIRUS (08/28/2024 7:08 AM DIESEL MACHINIST) SPECIMEN TYPE NASOPHARYNGEAL SWAB 08/28/2024 7:12 AM DIESEL MACHINIST [facility] RAPID RSV NEGATIVE NEGATIVE 08/28/2024 7:37 AM DIESEL MACHINIST [facility] NASOPHARYNGEAL SWAB / Unknown 08/28/2024 7:08 AM DIESEL MACHINIST Lito Rodas MD MICROBIOLOGY - GENERAL ORDERABL ES Final Result Performing Organization Address City/[facility]/ZIP Co de Phone Number [facility] [address] [place] [address], [place] [phone] * CORONAVIRUS (COVID-19) INFLUENZA A & B ANTIGEN IA PANEL (08/25/2024) CORONAVIRUS ANTIGEN IA NEGATIVE NEGATIVE [id number] A NE[facility]IVE NEGATIVE [id number], [place] INFLUENZA B NEGATIVE NEGATIVE [id number], [place] Internal Control: VALID VALID [id number], [place] NASAL STRUCTURE / Unknown 08/25/2024 Jl KRAUSE MICROBIOLOGY - GENERAL ORDERAB LES Final Result [id number] [address] [place] [address] [place] [address], * XR CHEST PORTABLE (07/03/2024 10:53 AM DIESEL MACHINIST) Anatomical Region Laterality Modality Chest Radiographic Jennyfer ging 07/03/2024 11:0 3 AM DIESEL MACHINIST Impressions 07/03/2024 11:04 AM DIESEL MACHINIST IMPRESSION: No radiographic evidence of active chest disease. Ordered By: ROSANA CANO Interpreted By: Jhonatan Schaefer MD, 07/03/2024 11:03 AM Narrative 07/03/2024 11:04 AM DIESEL MACHINIST [facility] [address] [place] [address] Examination: XR CHEST PORTABLE Exam time: 07/03/2024 10:45 AM Clinical history: Midsternal chest pain Comparison: No prior exam Technique: Upright AP view Findings: Multiple external wires and leads. Cardiomediastinal silhouette within normal limits. No evidence of focal atelectasis or consolidation. No evidence of pleural effusion. No evidence of bronchial wall thickening or abnormal pulmonary interstitium. Procedure Note Jhonatan Schaefer MD - 07/03/2024 [facility] [address] [facility] [place] [address] Examination: XR CHEST PORTABLE Exam time: 07/03/2024 10:45 AM Clinical history: Midsternal chest pain Comparison: No prior exam Technique: Upright AP view Findings: Multiple external wires and leads. Cardiomediastinal silhouettewithin normal limits. No evidence of focal atelectasis or consolidation.No evidence of pleural effusion. No evidence of bronchial wall thickeningor abnormal pulmonary interstitium. IMPRESSION: No radiographic evidence of active chest disease. Ordered By: ROSANA CANO Interpreted By: Jhonatan Schaefer MD, 07/03/2024 11:03 AM us Mablene Jerome MD GENERAL IMAGING Final Result * PARTIAL THROMBOPLASTIN TIME,PTT (07/03/2024 10:06 AM DIESEL MACHINIST) PTT 31.9 27.0 - 36.8 SEC 07/03/2024 10:29 AM DIESEL MACHINIST [facility] 07/03/2024 10:0 6 AM DIESEL MACHINIST us Rosana Cano MD LABORATORY Final Result Performing Organization Address [facility] Co de Phone Number [facility] [address] [place] [address], [place] [phone] * PROTIME/INR, VENOUS (07/03/2024 10:06 AM DIESEL MACHINIST) Pathologist [facility] PROTIME 12.2 9.1 - 12.4 SEC 07/03/2024 10:29 AM DIESEL MACHINIST [facility] INR 1.1 07/03/2024 10:29 AM DIESEL MACHINIST [facility] Comment: Recommend INR ranges for Oral Anticoagulant Therapy: Mechanical Cardiac Values 2.5-3.5 All others indication 2.0-3.0 07/03/2024 10:0 6 AM DIESEL MACHINIST us Rosana Cano MD LABORATORY Final Result Performing Organization Address City/[facility]/ZIP Co de Phone Number [facility] [address] [place] [address], [place] [phone] * D-DIMER, QUANTITATIVE (07/03/2024 10:06 AM DIESEL MACHINIST) D-DIMER <215 0 - 500 ng{FEU}/mL 07/03/2024 10:29 AM DIESEL MACHINIST [facility] Comment: D-Dimer values less than or equal to 500 ng/mL FEU have a negative predictive value of >95% for exclusion of deep vein thrombosis and pulmonary embolism. In patients over 50 (who tend to have higher normal baseline D-Dimer values), recent studies suggest age-adjusted D-Dimer cutoff values (calculated as: age [years] x 10 ng/mL) result in equivalent outcomes and no additional false negative findings. 07/03/2024 10:0 6 AM DIESEL MACHINIST us Rosana Cano MD LABORATORY Final Result Performing Organization Address [facility] Co de Phone Number [facility] [address] [place] [address], [place] [phone] * TROPONIN, QUANT (07/03/2024 10:06 AM DIESEL MACHINIST) TROPONIN I HIGH SENSITIVITY 6 0 - 50 ng/L 07/03/2024 10:30 AM DIESEL MACHINIST [facility] Comment: HIGH DOSES OF BIOTIN, TROPONIN-SPECIFIC AUTOANTIBODIES, AND ANTIBODY THERAPY CONTAINING HAMA MAY INTERFERE WITH THIS TEST RESULT. CORRELATION TO CLINICAL HISTORY AND PRESENTATION RECOMMENDED. 07/03/2024 10:0 6 AM DIESEL MACHINIST us Rosana Cano MD LABORATORY Final Result Performing Organization Address [facility] Co de Phone Number [facility] [address] [place] [address], [place] [phone] * CK (CPK) (07/03/2024 10:06 AM DIESEL MACHINIST) CPK 46 26 - 192 U/L 07/03/2024 10:26 AM DIESEL MACHINIST [facility] 07/03/2024 10:0 6 AM DIESEL MACHINIST us Rosana Cano MD LABORATORY Final Result Performing Organization Address City/[facility] Co de Phone Number [facility] [address] [place] [address], [place] [phone] * ECG 12 lead (07/03/2024 9:00 AM DIESEL MACHINIST) 07/03/2024 9:00 AM DIESEL MACHINIST Narrative [facility] ([facility]) RAD - 07/06/2024 1:48 PM DIESEL MACHINIST ?[facility] ? Test Date: ?2024-07-03 Pat Name: ? ROBERTA HOOKS ? Department: ?? 85 ? Room: ? TRA2 TR2 Gender: ? Female ? Financial Associate: ?? : ?2000 ? Requested By: ROSANA CANO Order Number: [id number] ? Reading MD: ?? Reji Gomez ? Measurements Intervals ?Bryant ? Rate: ? 53 ? P: ?5 DE: ? 117 ?QRS: ?62 QRSD: ? 84 ? T: ?77 QT: ? 409 ? QTc: ?385 ? Interpretive Statements SINUS BRADYCARDIA WITH SHORT DE INTERVAL POSSIBLE RIGHT VENTRICULAR CONDUCTION DELAY ??[RSR (QR) IN V1/V2] Compared to ECG 05/04/2024 17:22:48 Short DE interval now present Sinus rhythm no longer present EL MACHINIST Procedure Note Reji Gomez MD - 07/06/2024 [facility] Test Date: 2024-07-03 Pat Name: ROBERTA HOOKS Department: 85 Room: [place] [address] Gender: Female Financial Associate: : 2000 Requested By: ROSANA CANO Order Number: [id number] Lindsay MD: Reji Gomez Measurements Intervals Bryant Rate: 53 P: 5 DE: 117 QRS: 62 QRSD: 84 T: 77 QT: 409 QTc: 385 Interpretive Statements SINUS BRADYCARDIA WITH SHORT DE INTERVAL POSSIBLE RIGHT VENTRICULAR CONDUCTION DELAY [RSR (QR) IN V1/V2] Compared to ECG 05/04/2024 17:22:48 Short DE interval now present Sinus rhythm no longer present EL MACHINIST us Rosana Cano MD ECG ORDERABLES Final Result [facility] RAD * Urinalysis, Auto, Complete (06/29/2024 10:35 AM DIESEL MACHINIST) COLOR (U) YELLOW 06/29/2024 10:49 AM [facility] TRANSPARENCY HAZY 06/29/2024 10:49 AM [facility] SPECIFIC GRAVITY (U) 1.020 1.000 - 1.030 06/29/2024 10:49 AM [facility] U PH 7.0 5.0 - 9.0 06/29/2024 10:49 AM [facility] LEUKOCYTES (U) NEGATIVE NEGATIVE 06/29/2024 10:49 AM [facility] NITRITES NEGATIVE NEGATIVE 06/29/2024 10:49 AM [facility] PROTEIN RANDOM (U) NEGATIVE NEGATIVE 06/29/2024 10:49 AM [facility] GLUCOSE (U) NEGATIVE NEGATIVE 06/29/2024 10:49 AM [facility] KETONES MG/DL (U) NEGATIVE NEGATIVE 06/29/2024 10:49 AM [facility] BILIRUBIN (U) NEGATIVE NEGATIVE 06/29/2024 10:49 AM [facility] BLOOD (U) NEGATIVE NEGATIVE 06/29/2024 10:49 AM [facility] WBC/HPF NONE SEEN 0 - 5 /HPF 06/29/2024 10:49 AM [facility] RBC/HPF NONE SEEN 0 - 5 /HPF 06/29/2024 10:49 AM [facility] EPI/HPF FEW /HPF 06/29/2024 10:49 AM [facility] URINE HALL MODERATE 06/29/2024 10:49 AM DIESEL MACHINIST [facility] Comment: SMALL BUDDING YEAST FEW MUCOUS URINE SPECIMEN OBTAINED BY CLEAN CATCH PROCEDURE / Unknown 06/29/2024 10:35 AM DIESEL MACHINIST us Rosana Cano MD URINE ORDERABLES Final Result Performing Organization Address [facility] Co de Phone Number [facility] [address] [place] [address], [place] [phone] * AMYLASE (06/29/2024 9:35 AM DIESEL MACHINIST) AMYLASE S/P/B 33 25 - 115 UNITS/L 06/29/2024 9:55 AM DIESEL MACHINIST [facility] 06/29/2024 9:35 AM DIESEL MACHINIST us Rosana Cano MD LABORATORY Final Result Performing Organization Address [facility] Co de Phone Number [facility] [address] [place] [address], [place] [phone] * LIPASE (06/29/2024 9:35 AM DIESEL MACHINIST) LIPASE 39 16 - 77 UNITS/L 06/29/2024 9:55 AM DIESEL MACHINIST [facility] 06/29/2024 9:35 AM DIESEL MACHINIST us Rosana Cano MD LABORATORY Final Result Performing Organization Address [facility] Co de Phone Number [facility] [address] [place] [address], [place] [phone] from Last 3 Months Additional Health Concerns Infection Onset Date Last Indicated Influenza - Seasonal 08/28/2024 08/28/2024 Insurance [facility] Care Teams Architectural Inspector Relationship Specialty Start Date End Date Andre Friend PA-C [address] [place], [place] [phone] PCP - General PHYSICIAN COMMUNITY ENGAGEMENT COORDINATOR 08/10/21 Kirill Bah DO [address] [facility] [address] [place], [place] [phone] INTERNAL MEDICINE 05/04/24
--- OUTSIDE RECORDS SUMMARY | 2024-09-04 16:51 | XMS_ITS | Encounter Summary ---
Author Organization [facility] Address [address] [place] [address] Care Team Providers Care Loading Unit Operator Name Role Phone Unavailable Primary Care Provider Unavailabl e Encounter Details Date Type Department Care Team (Late Contact Info) Description 10/26/2023 Abstract [facility] Orthopedic Surgery at the [facility] [address] [facility] [address] [place] [address] Provider, Abstract NO ADDRESS ON FILE Social History Tobacco Use Types Packs/Day Years Used Date Smoking Tobacco: Never Assessed Comments Unknown Sex and Gender Information Value Date Recorded Sex Assigned at Not on file Legal Sex Female 3:58 PM CDT Gender Identity Not on file Sexual Orientation Not on file documented as of this encounter Plan of Treatment Upcoming Encounters Date Type Department Care Team (Late Contact Info) Description 09/22/2024 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
--- OUTSIDE RECORDS SUMMARY | 2024-09-04 16:51 | XMS_ITS | Referral Summary ---
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 Gender Identity Not on file Sexual Orientation Straight 10/25/2020 8: 21 AM CDT Last Filed Vital Signs Vital Sign Reading Time Taken Comments Blood Pressure 119/77 08/14/2022 5:52 AM LOOP PULLER Pulse 88 08/14/2022 5:52 AM LOOP PULLER Temperature 36.7 ??C (98.1 ??F) 08/14/2022 1:16 AM CS T Respiratory Rate 18 08/14/2022 5:52 AM LOOP PULLER Oxygen Saturation 99% 08/14/2022 5:52 AM LOOP PULLER Inhaled Oxygen Concentration - - Weight 68 kg (150 lb) 08/13/2022 10:11 PM LOOP PULLER Height 160 cm (5' 3 ) 08/13/2022 10:11 PM LOOP PULLER Body Mass Index 26.57 08/13/2022 10:11 PM LOOP PULLER Plan of Treatment Not on file Insurance [facility] Care Teams Supervisor Dried Yeast Relationship Specialty Start Date End Date Andre Friend PA [address] [facility] [address] [place] [address] PCP - General 07/28/21
--- OUTSIDE RECORDS SUMMARY | 2024-09-04 16:51 | XMS_ITS | Encounter Summary ---
Author Organization [facility] Address [address] [place] [address]. [place], [place] [address] [place] [address] Care Team Providers Care Paginator Name Role Phone Andre Friend PA-C Primary Care Provider [phone] Kirill Bah DO Unavailable [phone] Encounter Details Date Type Department Care Team (Late st Contact Info) Description 05/08/2024 [employer] Message Enc [facility] Family & Internal Medicine [facility] [address] [place] [address] [place] [address] [place] [address] [place] test results Social History Tobacco Use Types Packs/Day [...] Sex Assigned at Female 08/28/2024 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 Legal Sex Female 7:56 PM CDT Gender Identity Not on file Sexual Orientation Not on file documented as of this encounter Plan of Treatment Not on file documented as of this encounter Visit Diagnoses Not on filedocumented in this encounter Additional Health Concerns Infection Onset Date Last Indicated Resolved Time COVID-19 Rule Out 07/03/2024 07/03/2024 07/03/2024 10:27 AM BLOW MOLDING MACHINE TENDER COVID-19 Rule Out 08/25/2024 08/25/2024 08/25/2024 8:59 AM BLOW MOLDING MACHINE TENDER COVID-19 Rule Out 08/28/2024 08/28/2024 08/28/2024 7:34 AM BLOW MOLDING MACHINE TENDER Influenza - Seasonal 08/28/2024 08/28/2024 documented as of this encounter Care Teams Paginator Relationship Specialty Start Date End Date Andre Friend PA-C [address] [place], [place] [phone] PCP - General PHYSICIAN BULK INTAKE WORKER 08/10/21 Kirill Bah DO [address] [facility] [address] [place], [place] [phone] INTERNAL MEDICINE 05/04/24 documented as of this encounter
--- OUTSIDE RECORDS SUMMARY | 2024-09-04 16:51 | XMS_ITS | Clinical Summary ---
Author Organization [facility] Address [address] [place] [address] Care Team Providers Care Housing Assistant Name Role Phone Unavailable Primary Care Provider Unavailabl e Encounters Date Type Department Care Team Description 08/30/2024 External Device Data [facility] ABSTRACTION Provider, Abstract 08/30/2024 External Device Data [facility] ABSTRACTION Provider, Abstract from Last 3 Months Social History Tobacco Use Types Packs/Day Years Used Date Smoking Tobacco: Never Assessed Comments Unknown Sex and Gender Information Value Date Recorded Sex Assigned at Not on file Legal Sex Female 3:58 PM CDT Gender Identity Not on file Sexual Orientation Not on file Plan of Treatment Upcoming Encounters Date Type Department Care Team (Late st Contact Info) Description 09/22/2024 9:20 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
== END 2024-09-04 16:38 | disposition home or self-care (01) ==
PROVIDERS: PCP Internal Medicine; Visit Provider Internal Medicine
DX: J11.1 Influenza due to unidentified influenza virus with other respiratory manifestations (principal)
CPT/HCPCS: 71046